=== PATIENT | male | born 1980 | race Caucasian/White ===

== ENCOUNTER 2023-12-13 10:02 | Emergency (ER) | payer BC ==
[~2023-12-13] VITALS: Ht 182.9 cm; Wt 101.4 kg
[2023-12-13] MEDS ORDERED: ALLEGRA ALLERG180 MG PO (10:20)
[2023-12-13 10:27] LABS: BASOPHILS 0.6 % (0-2); EOSINOPHILS 2.3 % (0-6); HEMATOCRIT 43.8 % (35.0-50.0); HEMOGLOBIN 15.2 g/dL (12.0-18.0); LYMPHOCYTES 33.2 % (24-44); MCH 32.1 (27-36); MCHC 34.6 g/dl (30-36); MCV 92.7 fl (81-99); MONOCYTES 8.4 % (0-12); NEUTROPHILS 55.5 % (39-80); PLATELET COUNT 180 K/uL (140-440); RBC 4.72 M/ul (4.3-5.7); RDW 13.1 (10.5-15.0)
[2023-12-13] MEDS ORDERED: SODIUM CHLORIDE 0.9% 1,000 ML IV ONE (10:30)
[2023-12-13] MEDS ORDERED: ondansetron HCL 4 MG/2 ML VIAL IV ONE (10:30)
[2023-12-13 10:41] LABS: ALBUMIN 3.8 g/dL (3.4-5.0); ALBUMIN/GLOBULIN RATIO 1.09 (1.1-2.4); ANION GAP 14.8 (7-21); BILIRUBIN, TOTAL 1.2 ng/dL (0.2-1.0); BUN/CREATININE RATIO 13.08 (6.0-28.6); CALCIUM 8.2 mg/dL (8.5-10.1); CREATININE, SERUM 1.07 mg/dL (0.70-1.30); POTASSIUM 3.8 mmol/L (3.5-5.1); PROTEIN, TOTAL 7.3 g/dL (6.4-8.2)
[2023-12-13] MEDS ORDERED: LORazepam 2 MG/ML VIAL IV ONE (10:45)
[2023-12-13] MEDS ORDERED: diphenhydrAMINE HCL 50 MG/ML VIAL IV ONE (10:45)
[2023-12-13 12:24] VITALS: BP 144/88
--- NOTE | 2023-12-14 13:39 | EKG ---
[facility] [address] [facility] [place], [place] [address] Signed Normal sinus rhythm Left axis deviation Abnormal ECG When compared with ECG of 13-DEC-2023 10:04, (Unconfirmed) No significant change was found Confirmed by Judy Larose MD ([id number]) on 12/14/2023 1:38:56 PM Electronically Signed By: JUDY LAROSE 12/14/23 1339 PATIENT NAME: LACEY LA Electrocardiogram DATE OF : 82 PHYSICIAN: JUDY LAROSE REPORT #: [id number] REPORT IS CONFIDENTIAL AND NOT TO BE RELEASED WITHOUT AUTHORIZATION
== END 2023-12-13 12:24 | disposition home or self-care (01) ==
LOC: ED 10:02
PROVIDERS: Emergency Medicine
DX: R07.89 Other chest pain (principal); R06.02 Shortness of breath; I10 Essential (primary) hypertension; Z79.899 Other long term (current) drug therapy
CPT/HCPCS: 36415; 71045; 71260; 80053; 83880; 84484; 85025; 93005; 93010; 96375; 99285-25; J1200; J2060; J2405; J7030; Q9967